=== PATIENT | male | born 1970 | race Caucasian/White ===

== ENCOUNTER 2020-11-09 19:10 | Emergency (ER) | payer OTHER ==
[2020-11-09] MEDS ORDERED: ACETAMINOPHEN-T1 TAB PO (19:19)
[2020-11-09 21:15] LABS: BASO # 0.01 (0.02-0.10); EOS # 0.02 (0.04-0.40); EOS % 0.4 % (0.0-4.0); HEMATOCRIT 38.4 % (42.0-52.0); HEMOGLOBIN 13.3 g/dL (13.5-18.0); LYMPH# 1.29 (1.50-4.00); MEAN CELL VOLUME 96 fl (78-100); MEAN CORPUSCULAR HEMOGLOBIN 33 pg (27-31); MEAN CORPUSCULAR HGB CONC 35 g/dL (33-37); MEAN PLATELET VOLUME 9.5 fl (7.4-10.4); MONO # 0.66 (0.20-0.80); NEU # 3.34 (1.40-6.50); PLATELET COUNT 226 K/mm3 (130-400); RED BLOOD COUNT 4.01 M/mm3 (4.20-5.60); RED CELL DISTRIBUTION WIDTH 12.1 % (11.5-14.5); WHITE BLOOD COUNT 5.3 K/mm3 (4.8-10.8)
[2020-11-09 21:24] LABS: ALBUMIN 4.2 g/dL (3.5-5.0)
[2020-11-09 21:25] LABS: POTASSIUM 4.2 mmol/L (3.5-5.1)
[2020-11-09 21:27] LABS: TOTAL PROTEIN 7.3 g/dL (6.4-8.3)
[2020-11-09 21:29] LABS: TOTAL BILIRUBIN 0.5 mg/dL (0.2-1.2)
[2020-11-09 21:32] LABS: URINE APPEARANCE CLEAR; URINE BILIRUBIN NEGATIVE (NEGATIVE); URINE BLOOD NEGATIVE (NEGATIVE); URINE COLOR AMBER; URINE GLUCOSE NEGATIVE (NEGATIVE); URINE KETONE NEGATIVE (NEGATIVE); URINE LEUKOCYTE ESTERASE NEGATIVE (NEGATIVE); URINE NITRATE NEGATIVE (NEGATIVE); URINE PROTEIN(semi-quant) TRACE mg/dL (NEGATIVE); URINE UROBILINOGEN NORMAL (NORMAL); URINE WBC 0-1 /hpf (0-3)
[2020-11-09 21:33] LABS: URINE MUCUS PRESENT (NOT PRESENT)
[2020-11-09 22:10] VITALS: BP 122/84
== END 2020-11-09 22:11 | disposition home or self-care (01) ==
LOC: ED 19:10
PROVIDERS: Nurse Practitioner
DX: U07.1 COVID-19 (principal); Z87.891 Personal history of nicotine dependence
CPT/HCPCS: J7030